=== PATIENT | female | born 1995 | race African-American/Black ===

== ENCOUNTER 2017-01-13 03:28 | Emergency (ER) | payer OTHER ==
[2017-01-13 03:36] VITALS: BP 138/100; PULSE 94; BMI 24.0
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
[2017-01-13 04:31] VITALS: TEMP 97.8
[2017-01-13] MEDS ORDERED: LIDOCAINE 1%/EPI 1:100000 (50 ML MULTI DOSE VIAL) ONE (05:05)
== END 2017-01-13 06:32 | disposition home or self-care (01) ==
LOC: JER 03:28
PROC: 0HQGXZZ Repair Left Hand Skin, External Approach (ICD-10-PCS; principal; 2017-01-13)
DX: S61.422A Laceration with foreign body of left hand, initial encounter (principal); X99.1XXA Assault by knife, initial encounter; Y93.89 Activity, other specified; Y92.89 Other specified places as the place of occurrence of the external cause; Y07.9 Unspecified perpetrator of maltreatment and neglect
CPT/HCPCS: 12002-25; 70450-TC; 72125-TC; 84703; 99281-25; 99282-25

== ENCOUNTER 2017-01-13 13:18 | Emergency (ER) | payer OTHER ==
[2017-01-13 13:38] VITALS: BP 129/77; PULSE 62; TEMP 98.6; BMI 31.8
[2017-01-13] MEDS ORDERED: OXYCODONE/APAP 5/325MG COMBO TABLET ONE ×2 (14:59→15:05)
[2017-01-13] MEDS ORDERED: OXYCODONE/APAP 5/325MG COMBO TABLET PO ONE (15:02)
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
== END 2017-01-13 15:25 | disposition home or self-care (01) ==
LOC: JERFT 13:18
DX: Z09 Encounter for follow-up examination after completed treatment for conditions other than malignant neoplasm (principal); L76.22 Postprocedural hemorrhage of skin and subcutaneous tissue following other procedure; Y83.8 Other surgical procedures as the cause of abnormal reaction of the patient, or of later complication, without mention of misadventure at the time of the procedure
CPT/HCPCS: 99281-25

== ENCOUNTER 2020-04-03 10:34 | Inpatient (IN) | payer OTHER ==
[2020-04-03 12:31] VITALS: BMI 41.4
[2020-04-03] MEDS ORDERED: DEXTROSE 5%-LACTATED RINGERS 1,000 ML IV SCH (14:00)
--- NOTE | 2020-04-03 14:08 | HP ---
Past Medical History - Admission Chief Complaint: Labor pain History of Present Illness: 24 yo @ 40 weeks gestation, EDC 03/30/20, admitted for labor pain. Upon admission she was 5cm dilated. She denies any vaginal bleeding nor rupture of membrane. History Source: Patient Limitations to Obtaining History: No Limitations - Past Medical History ...: 2 ...Para: 0 ...Spon : 1 ...LMP: 06/26/19 ... Weeks Gestation by Dates: 40.4 ...EDC by Dates: 03/30/20 ...EDC by Sono: 04/01/20 - Past Surgical History Past Surgical History: Yes: None Hx Myomectomy: No Hx Transabdominal Cerclage: No - Smoking History Smoking history: Never smoked Have you smoked in the past 12 months: No Aproximately how many cigarettes per day: 5 - Alcohol/Substance Use Hx Alcohol Use: No - Social History Usual Living Arrangement: Yes: With Parent History of Recent Travel: No Home Medications - Allergies Allergies/Adverse Reactions: Allergies Allergy/AdvReac Type Severity Reaction Status Date / Time No Known Allergies Allergy Verified 04/03/20 12:46 - Home Medications Home Medications: Ambulatory Orders Ferrous Sulfate 1 tab PO DAILY 03/16/20 Pnv No.95/Ferrous Fum/Folic AC [ Caplet] 1 tab PO DAILY 03/16/20 Valacyclovir HCl [Valtrex] 1 tab PO BID 03/16/20 Family Medical History Family History: Unremarkable Review of Systems - Review of Systems Constitutional: reports: No Symptoms Eyes: reports: No Symptoms HENT: reports: No Symptoms Neck: reports: No Symptoms Cardiovascular: reports: No Symptoms Respiratory: reports: No Symptoms Gastrointestinal: reports: No Symptoms Genitourinary: reports: Pain Breasts: reports: No Symptoms Reported Musculoskeletal: reports: No Symptoms Integumentary: reports: No Symptoms Psychiatric: reports: No Symptoms Pain Intensity: 6 Physical Exam - Maternity Vital Signs: Vital Signs Temperature 98.3 F 04/03/20 12:21 Pulse Rate 82 04/03/20 12:21 Respiratory Rate 18 04/03/20 12:21 Blood Pressure 135/78 04/03/20 12:21 O2 Sat by Pulse Oximetry (%) Constitutional: Yes: Well Nourished Eyes: Yes: Conjunctiva Clear HENT: Yes: Atraumatic Neck: Yes: Supple Cardiovascular: Yes: Regular Rate and Rhythm Lungs: Clear to auscultation - Abdominal Exam/OB Number of Fetuses: Single Presentation: Vertex Contractions: Yes Intensity: Mild/Mod Category: I - Vaginal Exam/OB Vaginal Bleeding: No Dilatation (cm): 5 Effacement (%): 70 Presentation: Vertex/Position Station: -2 - Physical Exam ...Motor Strength: WNL Psychiatric: Yes: Alert, Oriented Problem List - Problems (1) 40 weeks gestation of Problems reviewed: Yes Code(s): Z3A.40 - 40 WEEKS GESTATION OF (2) Post-dates Problems reviewed: Yes Code(s): O48.0 - POST-TERM Qualifiers: Post-term type: 40-42 weeks gestation Qualified Code(s): O48.0 - Post-term Assessment/Plan Postdates Pain during labor Admit to L&D Analgesia as needed Anticipate
[2020-04-03 14:43] LABS: BASO % 0.2 % (0-2.0); EOS % 0.5 % (0-4.5); HEMATOCRIT 35.1 % (32.4-45.2); HEMOGLOBIN 11.5 GM/dL (10.7-15.3); LYMPH % 11.1 % (8-40); MCH 27.9 pg (25.7-33.7); MCHC 32.6 g/dl (32.0-36.0); MEAN CELL VOLUME 85.7 fl (80-96); MONO % 7.5 % (3.8-10.2); NEUT % 80.7 % (42.8-82.8); PLATELET COUNT 201 K/MM3 (134-434); RDW 15.5 % (11.6-15.6); WHITE BLOOD COUNT 13.2 K/mm3 (4.0-10.0)
[2020-04-03 14:48] LABS: INR 0.97 (0.83-1.09); PROTHROMBIN TIME (PATIENT) 11.4 SEC (9.7-13.0)
[2020-04-03 14:51] LABS: ACTIVATED PTT 27.8 SECONDS (25.2-36.5)
[2020-04-03] MEDS ORDERED: PCA PUMP NR ONE ×2 (15:07→19:23)
[2020-04-03] MEDS ORDERED: FENTANYL/BUPIVACAINE/NS/PF - PCEA - 50 ML DISP.SYRIN EP ONE ×2 (15:07→19:22)
[2020-04-03 15:12] LABS: BLOOD UREA NITROGEN 5.6 mg/dL (7-18); CALCIUM 9.2 mg/dL (8.5-10.1); CREATININE 0.6 mg/dL (0.55-1.3); POTASSIUM 4.4 mmol/L (3.5-5.1)
[2020-04-03] MEDS ORDERED: NALOXONE HCL 0.4 MG/ML VIAL IVPUSH PRN (16:49)
[2020-04-03] MEDS ORDERED: FENTANYL/BUPIVACAINE/NS/PF - PCEA - 50 ML DISP.SYRIN EP SCH (17:00)
[2020-04-03] MEDS ORDERED: OXYTOCIN 30 UNITS in 0.9% NS 30 UNIT/500 ML INFUS.BAG IVPB SCH (17:30)
[2020-04-03] MEDS ORDERED: OXYTOCIN 20 UNITS in 0.9% NS 20 UNIT/1,000 ML INFUS.BAG IV ONE ×2 (20:08→23:54)
[2020-04-03] MEDS ORDERED: OXYTOCIN 20 UNITS in 0.9% NS 20 UNIT/1,000 ML INFUS.BAG IV SCH ×2 (22:00→23:15)
[2020-04-03] MEDS ORDERED: MISOPROSTOL 200 MCG TABLET NR ONE (23:00)
[2020-04-03] MEDS ORDERED: METHYLERGONOVINE MALEATE 0.2 MG/1 ML AMP IM PRN (23:05)
[2020-04-03] MEDS ORDERED: WITCH HAZEL 50% (TUCKS) 40 PAD/JAR PAD TP PRN (23:05)
[2020-04-03] MEDS ORDERED: BENZOCAINE 28 GM HEMORRHOIDAL OINTMENT TP PRN (23:05)
[2020-04-03] MEDS ORDERED: BISACODYL 10 MG SUPP.RECT RC PRN (23:05)
[2020-04-03] MEDS ORDERED: BENZOCAINE 20% 57 GM BOTTLE TP PRN (23:05)
--- NOTE | 2020-04-03 23:09 | PN ---
Delivery - Delivery Vaginal Delivery: Spontaneous Type of Anesthesia: Local, Epidural Episiotomy/Laceration: Midline EBL (cc): 300 Delivery, Single - Stages of Labor Date 1st Stage Initiatied: 04/03/20 Time 1st Stage Initiated: 07:00 Date 2nd Stage Initiated: 04/03/20 Time 2nd Stage Initiated: 21:00 Date of Delivery: 04/03/20 Time of Delivery: 21:37 Time Placenta Delivered: 21:42 - Condition of Surgical Elastic Knitter/Outbound Telemarketer Present: No Infant Gender: Male Total Hours ROM (Hrs/Mins): 8hrs.32mins. - 1 Minute Total Score: 9 5 Minutes Total Score: 9 - [place] Feeding Plan Initial Plan: Exclusive throughout hospitalization Remarks - Remarks Remarks: Normal spontaneous vaginal delivery of a live boy over midline episiotomy. Nose / Oropharynx suctioned @ perineum. Cord clamped and cut. Baby handed to mother then to nurse. Placenta expelled spontaneously intact. Episiotomy repaired with 2.0 Chromic. Mother in stable condition.
[2020-04-03] MEDS ORDERED: LIDOCAINE HCL 1% PRESERVATIVE FREE - 30ML VIAL ONE (23:47)
[2020-04-04] MEDS ORDERED: OXYTOCIN 20 UNITS in 0.9% NS 20 UNIT/1,000 ML INFUS.BAG IV SCH (00:30)
--- NOTE | 2020-04-04 00:37 | PN ---
Progress Note (short form) - Note Progress Note: Called to evaluate with bleeding. VSS, afebrile Pelvic - V/V - blood oozing ++, about 300 mls of clots removed from vagina Uterus well contracted Plan - Misoprostol administered per rectum, in addition to oxytocin infusion. Methergine administered earlier. Continue other medications.
[2020-04-04] MEDS ORDERED: OXYTOCIN 20 UNITS in 0.9% NS 20 UNIT/1,000 ML INFUS.BAG IV ONE (01:45)
[2020-04-04] MEDS ORDERED: CEFAZOLIN 2 GM/D5W 2 GM/50 ML ML IVPB ONE ×2 (01:59→02:00)
[2020-04-04 02:12] LABS: BASO % 0.2 % (0-2.0); HEMATOCRIT 28.7 % (32.4-45.2); HEMOGLOBIN 9.3 GM/dL (10.7-15.3); LYMPH % 5.7 % (8-40); MCH 27.8 pg (25.7-33.7); MCHC 32.4 g/dl (32.0-36.0); MEAN CELL VOLUME 85.6 fl (80-96); MEAN PLT VOLUME 9.9 fl (7.5-11.1); MONO % 5.4 % (3.8-10.2); NEUT % 88.7 % (42.8-82.8); PLATELET COUNT 180 K/MM3 (134-434); RBC 3.35 M/mm3 (3.60-5.2); RDW 15.9 % (11.6-15.6); WHITE BLOOD COUNT 16.4 K/mm3 (4.0-10.0)
[2020-04-04] MEDS ORDERED: oxyCODONE HCL 5 MG TABLET ONE (03:13)
[2020-04-04] MEDS: ACETAMINOPHEN 325 MG TABLET (FP) PO PRN ×4 (03:15→21:57)
[2020-04-04] MEDS ORDERED: oxyCODONE HCL 5 MG TABLET PO ONE (03:15)
[2020-04-04] MEDS ORDERED: ACETAMINOPHEN 325 MG TABLET (FP) ONE (03:15)
[2020-04-04] MEDS ORDERED: CITRIC ACID/SODIUM CITRATE 30 ML UNIT-DOSE CUP PO ONE (04:15)
[2020-04-04] MEDS ORDERED: MIDAZOLAM HCL 2 MG/2 ML SINGLE DOSE VIAL ONE ×2 (05:20)
[2020-04-04] MEDS ORDERED: PROPOFOL 20 ML ONE (05:20)
[2020-04-04] MEDS ORDERED: ceFAZolin SODIUM 1 GM VIAL IVPB ONE (05:30)
[2020-04-04] MEDS ORDERED: ceFAZolin SODIUM 1 GM VIAL ONE ×2 (05:43)
[2020-04-04] MEDS ORDERED: KETOROLAC TROMETHAMINE 30 MG/1 ML VIAL ONE (05:43)
[2020-04-04] MEDS ORDERED: oxyCODONE HCL 5 MG TABLET PO PRN (05:51)
[2020-04-04] MEDS ORDERED: PROMETHAZINE HCL 25 MG/1 ML VIAL IVPUSH PRN (05:51)
[2020-04-04] MEDS ORDERED: ONDANSETRON 4 MG/2 ML VIAL IVPUSH PRN (05:51)
--- NOTE | 2020-04-04 06:02 | OP ---
Operative Note - Note: Operative Date: 04/04/20 Pre-Operative Diagnosis: hemorrhage / Retained placenta Operation: Suction D&C Findings: Large amount of clots inside the uterus Post-Operative Diagnosis: Same as Pre-op Surgeon: Val Blankenship Anesthesia: General Specimens Removed: Uterine content / Retained placenta Estimated Blood Loss (mls): 100
[2020-04-04] MEDS: PRENATAL VITAMINS W/ FOLIC ACID TABLET (FP) PO SCH (09:25)
[2020-04-04] MEDS: FERROUS SO4 325 MG TABLET (FP) PO SCH ×2 (09:25→21:58)
[2020-04-04] MEDS: IBUPROFEN 600 MG TABLET (FP) PO PRN ×3 (09:47→21:56)
[2020-04-04 10:09] LABS: BASO % 0.1 % (0-2.0); EOS % 0.1 % (0-4.5); HEMATOCRIT 22.3 % (32.4-45.2); HEMOGLOBIN 7.2 GM/dL (10.7-15.3); LYMPH % 8.9 % (8-40); MCH 27.8 pg (25.7-33.7); MCHC 32.2 g/dl (32.0-36.0); MEAN CELL VOLUME 86.4 fl (80-96); MEAN PLT VOLUME 10.1 fl (7.5-11.1); MONO % 5.9 % (3.8-10.2); PLATELET COUNT 174 K/MM3 (134-434); RBC 2.58 M/mm3 (3.60-5.2); RDW 15.6 % (11.6-15.6); WHITE BLOOD COUNT 15.2 K/mm3 (4.0-10.0)
--- NOTE | 2020-04-04 12:19 | PN ---
Progress Note (short form) - Note Progress Note: 24 yo Para 1 status post vaginal delivery complicated by hemorrhage, seen and evaluated. She c/o dizziness and lightheadedness. Repeat hemoglobin has significantly dropped. Patient was recommended blood transfusion. Consent signed. Problem List - Problems (1) 40 weeks gestation of Code(s): Z3A.40 - 40 WEEKS GESTATION OF (2) Post-dates Code(s): O48.0 - POST-TERM Qualifiers: Post-term type: 40-42 weeks gestation Qualified Code(s): O48.0 - Post-term
--- NOTE | 2020-04-04 18:54 | PN ---
Progress Note (short form) - Note Progress Note: 24F P1 status post vaginal delivery complicated by hemorrhage. D/C under GA. Received 1U PRBC. Vital Signs Temp 98.1 F 04/04/20 14:02 Pulse 97 H 04/04/20 14:02 Resp 20 04/04/20 14:02 BP 118/70 04/04/20 14:02 Pulse Ox 98 04/04/20 14:02 Intake & Output 04/03/20 04/04/20 04/04/20 23:59 11:59 23:59 Intake Total 1450 700 Output Total 201 700 200 Balance 1249 0 -200 Weight 257 lb Intake: IV 1450 700 D5-Lr - 1,000 ml @ 125 1000 mls/hr IV ASDIR NIRANJAN Rx#: [id number] NORMAL SALINE+30 UNITS 450 OXYTOCIN 30 unit In 500 ml @ 0.06 UNIT/HR 1 mls/ hr IVPB TITR NIRANJAN Rx#: [id number] Output: Urine 201 600 200 Brand 200 Void 201 Estimated Blood Loss 100 Other: Voiding Method Toilet Indwelling Catheter Bowel Movement No Height 5 ft 6 in Body Mass Index (BMI) 41.4 Weight 7 lb 11 oz Length 19 in CBC, BMP 04/04/20 09:42 04/03/20 14:00 - No anesthesia complications
--- NOTE | 2020-04-04 20:23 | OP ---
DATE OF OPERATION: 04/04/2020 PREOPERATIVE DIAGNOSIS: hemorrhage and retained placenta. POSTOPERATIVE DIAGNOSIS: hemorrhage and retained placenta. PROCEDURE: Suction dilatation and curettage. SURGEON: Val Blankenship MD ANESTHESIA: Sedation. FINDINGS: Large amount of clots inside the uterus. ESTIMATED BLOOD LOSS: 100 mL. DESCRIPTION OF PROCEDURE: Patient was taken to the operating room where sedation was administered. Patient was then placed in lithotomy position. She was then prepped and draped in proper sterile fashion. A weighted speculum was placed in the vagina. The anterior lip of the cervix was grasped with single-tooth tenaculum. Then, as soon as the speculum was placed, a large amount of clots was released from the uterine cavity. Then, a 10-mm suction curet was introduced into the uterine cavity. The suction curet was rotated to clear the uterus of all remaining products of conception. Then, the instruments were removed. The patient was taken out of lithotomy position. She was taken to PACU in stable condition. PATHOLOGY: Uterine content. Leann [id number]
[2020-04-04] MEDS ORDERED: SENNOSIDES/DOCUSATE COMBO (SENNA PLUS) TABLET (UD) PO PRN (22:00)
[2020-04-05 05:31] LABS: BASO % 0.2 % (0-2.0); EOS % 0.8 % (0-4.5); HEMATOCRIT 25.1 % (32.4-45.2); HEMOGLOBIN 8.3 GM/dL (10.7-15.3); MCH 28.1 pg (25.7-33.7); MEAN CELL VOLUME 85.1 fl (80-96); MEAN PLT VOLUME 8.9 fl (7.5-11.1); MONO % 7.1 % (3.8-10.2); NEUT % 72.9 % (42.8-82.8); PLATELET COUNT 171 K/MM3 (134-434); RBC 2.95 M/mm3 (3.60-5.2); RDW 15.9 % (11.6-15.6); WHITE BLOOD COUNT 15.5 K/mm3 (4.0-10.0)
[2020-04-05] MEDS: ACETAMINOPHEN 325 MG TABLET (FP) PO PRN (08:30)
[2020-04-05] MEDS: IBUPROFEN 600 MG TABLET (FP) PO PRN (08:30)
[2020-04-05 08:41] LABS: BASO % 0.3 % (0-2.0); EOS % 0.8 % (0-4.5); HEMATOCRIT 23.8 % (32.4-45.2); HEMOGLOBIN 7.8 GM/dL (10.7-15.3); LYMPH % 17.8 % (8-40); MCH 28.7 pg (25.7-33.7); MEAN PLT VOLUME 9.5 fl (7.5-11.1); MONO % 7.1 % (3.8-10.2); PLATELET COUNT 160 K/MM3 (134-434); RBC 2.73 M/mm3 (3.60-5.2); RDW 15.9 % (11.6-15.6); WHITE BLOOD COUNT 13.5 K/mm3 (4.0-10.0)
[2020-04-05] MEDS: FERROUS SO4 325 MG TABLET (FP) PO SCH (11:18)
[2020-04-05] MEDS: PRENATAL VITAMINS W/ FOLIC ACID TABLET (FP) PO SCH (11:18)
[2020-04-05 14:40] VITALS: BP 118/77; PULSE 92; TEMP 98.1
--- NOTE | 2020-04-08 14:41 | DS ---
Physical Exam-SENIOR PRODUCTION SUPERVISOR Vital Signs: Vital Signs Temperature 98.1 F 04/05/20 09:00 Pulse Rate 92 H 04/05/20 09:00 Respiratory Rate 20 04/05/20 09:00 Blood Pressure 118/77 04/05/20 09:00 O2 Sat by Pulse Oximetry (%) 98 04/04/20 14:02 Constitutional: Yes: No Distress Eyes: Yes: Conjunctiva Clear HENT: Yes: Atraumatic Neck: Yes: Supple Cardiovascular: Yes: Regular Rate and Rhythm Respiratory: Yes: Regular Gastrointestinal: Yes: Normal Bowel Sounds Vaginal Exam: Yes: Normal Cervix: Yes: Normal ....Post : Yes: Uterus firm, Moderate lochia serosa Breast(s): Yes: WNL Musculoskeletal: Yes: WNL Extremities: Yes: WNL Integumentary: Yes: WNL Neurological: Yes: Alert, Oriented ...Motor Strength: WNL Psychiatric: Yes: Alert, Oriented Labs: CBC, BMP 04/05/20 07:50 04/03/20 14:00 Delivery - Delivery Vaginal Delivery: Spontaneous Type of Anesthesia: Local, Epidural Episiotomy/Laceration: Midline EBL (cc): 300 Delivery, Single - Stages of Labor Date 1st Stage Initiatied: 04/03/20 Time 1st Stage Initiated: 07:00 Date 2nd Stage Initiated: 04/03/20 Time 2nd Stage Initiated: 21:00 Date of Delivery: 04/03/20 Time of Delivery: 21:37 Time Placenta Delivered: 21:42 - Condition of Complaint Manager/Automat Car Attendant Present: No Infant Gender: Male Weight: 7 lb 11 oz Total Hours ROM (Hrs/Mins): 8hrs.32mins. - 1 Minute Total Score: 9 5 Minutes Total Score: 9 - [place] Feeding Plan Initial Plan: Exclusive throughout hospitalization Discharge Summary Problems reviewed: Yes Reason For Visit: ADMIT LABOR Procedures: Principal: Normal vaginal delivery Other Procedures: Suction D&C Hospital Course: After delivery, patient suffered from hemorrhage. She was taken to OR for a suction D&C. She subsequently received 2 units of PRBC 's due to severe anemia. Health Concerns: None Plan of Treatment: Analgesia as needed Ferrous sulfate F/U in clinic as scheduled Goals: Resume regular activities in 6 weeks F/U in clinic in 4 weeks Condition: Good - Instructions Diet, Activity, Other Instructions: Regular diet No douching, no sexual intercourse x 6 weeks F/U in clinic in 6 weeks Referrals: Val Blankenship MD [Staff Physician] - Disposition: HOME - Home Medications Comprehensive Discharge Medication List: Ambulatory Orders Ferrous Sulfate 1 tab PO DAILY 03/16/20 Pnv No.95/Ferrous Fum/Folic AC [ Caplet] 1 tab PO DAILY 03/16/20 Valacyclovir HCl [Valtrex] 1 tab PO BID 03/16/20
--- NOTE | 2020-04-09 15:38 | PATH ---
Surgical Pathology Report Patient Name: KOFI REYNA Med. Rec. #: [id number] /Age/Gender: 1995 (Age: 24) / F Account: [id number] Location: [facility] Taken: 04/04/2020 Received: 04/07/2020 Reported: 04/09/2020 Physicians: Val Blankenship M.D. Specimen(s) Received UTERINE CONTENTS Clinical History Retained placenta Final Diagnosis UTERINE CONTENTS, REMOVAL: FRAGMENTS OF DECIDUAL TISSUE ADMIXED WITH BLOOD CLOT. BENIGN ENDOCERVICAL AND ENDOMETRIAL GLANDS WITH HERNANDEZ-RODRIGUEZ REACTION. SEPARATE FRAGMENTS OF UNREMARKABLE SQUAMOUS EPITHELIUM. Electronically Signed Ilene Zavaleta M.D. Gross Description Received in formalin labeled "uterine contents," is a 20.0 x 15.0 x 2.7 cm aggregate of red-brown blood clot, possibly containing soft tissue fragments. Product Managent Intern sections are submitted in 3 cassettes. Additional tissue is submitted in cassettes 4-8. /04/07/2020 [place]/04/07/2020
== END 2020-04-05 14:55 | disposition home or self-care (01) | DRG 541 ==
LOC: JDEL 10:34 → JLDR 11:15 → J3W 04-04 06:55
PROVIDERS: ADMIT Obstetrics & Gynecology; ATTEND Obstetrics & Gynecology
PROC: 0W8NXZZ Division of Female Perineum, External Approach (ICD-10-PCS; principal; 2020-04-03)
PROC: 10E0XZZ Delivery of Products of Conception, External Approach (ICD-10-PCS; 2020-04-03)
PROC: 10D17ZZ Extraction of Products of Conception, Retained, Via Natural or Artificial Opening (ICD-10-PCS; 2020-04-04)
PROC: 30233N1 Transfusion of Nonautologous Red Blood Cells into Peripheral Vein, Percutaneous Approach (ICD-10-PCS; 2020-04-04)
DX: O48.0 Post-term pregnancy (principal); O72.1 Other immediate postpartum hemorrhage; O72.0 Third-stage hemorrhage; O99.214 Obesity complicating childbirth; E66.01 Morbid (severe) obesity due to excess calories; O70.9 Perineal laceration during delivery, unspecified; Z3A.40 40 weeks gestation of pregnancy; Z37.0 Single live birth
CPT/HCPCS: 36415; 36430; 59409; 80048; 85025; 85384; 85610; 85730; 86780; 86850; 86870; 86900; 86901; 86902; 86922; 88305-TC; 94760; P9058; U0003